=== PATIENT | male | born 1965 | race Caucasian/White ===

== ENCOUNTER 2018-04-25 10:24 | Emergency (ER) | payer MEDICAID ==
[~2018-04-25] VITALS: Ht 167.6 cm; Wt 79.8 kg
[2018-04-25 10:25] VITALS: BP 112/69
--- NOTE | 2018-04-25 10:25 | NUR ---
PT AMBULATES TO BED 10
--- NOTE | 2018-04-25 10:29 | NUR ---
Patient being evaluated by physician at bedside.
[2018-04-25] MEDS ORDERED: MORPHINE SULFATE 2 MG/ML SYR IM ONE (10:30)
[2018-04-25] MEDS ORDERED: NACL 0.9% 1,000 ML IV ONE (10:30)
--- NOTE | 2018-04-25 10:30 | NUR ---
PT BIB SELF FOR LACERATION TO RIGHT SECOND TO 4TH DIGITS CAUSED BY A CHAINSAW AT WORK. PATIENT STATES HE IS IN SEVERE PAIN 10/10. PATIENT APPEARS DIAPHORETIC AND STATES HE FEELS HE IS GOING TO PASS OUT. PATIENT PLACED ON MONITOR. DENIES HX DENIES MEDS. LAST TETANUS SHOT 5YRS AGO. FINGERS ARE ACTIVELY BLEEDING. VSS; PATIENT POSITIONED FOR COMFORT; HOB ELEVATED; BEDRAILS UP X2; BED DOWN. ER MD MADE AWARE OF PT STATUS.
--- NOTE | 2018-04-25 10:32 | NUR ---
XRAY AT BEDSIDE
--- NOTE | 2018-04-25 10:37 | NUR ---
PATIENT MEDICATED FOR RT. FINGER X3 FINGERS PAIN. PAIN LEVEL 10/10. MONITORED
[2018-04-25] MEDS ORDERED: MORPHINE SULFATE 2 MG/ML SYR ONE ×2 (10:38→12:56)
[2018-04-25] MEDS ORDERED: MORPHINE SULFATE 2 MG/ML SYR IVP ONE (10:50)
[2018-04-25] MEDS ORDERED: MIDAZOLAM 2 MG/2 ML VIAL IVP ONE (10:50)
[2018-04-25] MEDS ORDERED: KETAMINE 500 MG/5 ML VIAL IVP ONE (11:55)
--- NOTE | 2018-04-25 12:19 | NUR ---
CONCIOUS SEDATION STARTED, DR. HAMPTON, GIOVANY EMT, DIGNA RN, AND MELISSA RN AT BEDSIDE.
--- NOTE | 2018-04-25 12:20 | NUR ---
DR. HAMPTON STARTED SUTURING.
--- NOTE | 2018-04-25 12:55 | NUR ---
CONCIOUS SEDATION AND SUTURING OVER. PT TOLERATED PROCEDURE WELL, VSS.
[2018-04-25] MEDS ORDERED: ceFAZolin 1,000 MG in DEXTROSE 5% 100 ML IV ONE (13:00)
[2018-04-25] MEDS ORDERED: KETOROLAC 30 MG/ML VIAL IVP ONE (13:00)
--- NOTE | 2018-04-25 13:10 | NUR ---
Patient appears to be resting comfortably in bed. Vital Signs within normal limits. Respirations even and unlabored.
[2018-04-25] MEDS ORDERED: ceFAZolin 1,000 MG VIAL ONE (13:34)
--- NOTE | 2018-04-25 14:30 | NUR ---
Patient appears to be resting comfortably in bed. Vital Signs within normal limits. Respirations even and unlabored.
--- NOTE | 2018-04-25 15:30 | NUR ---
Patient appears to be resting comfortably in bed. Vital Signs within normal limits. Respirations even and unlabored.
--- NOTE | 2018-04-25 16:20 | NUR ---
Patient discharged with v/s stable. Written and verbal after care instructions given and explained. Patient alert, oriented and verbalized understanding of instructions. Ambulatory with steady gait. All questions addressed prior to discharge. ID band removed. Patient advised to follow up with PMD. Rx of BACTRIM, MOTRIN, TRAMADOL given. Patient educated on indication of medication including possible reaction and side effects. Opportunity to ask questions provided and answered.
[2018-04-25 16:30] VITALS: BP 127/83
== END 2018-04-25 16:20 | disposition home or self-care (01) ==
LOC: MED 10:24
DX: S62.626B Displaced fracture of middle phalanx of right little finger, initial encounter for open fracture (principal); S61.210A Laceration without foreign body of right index finger without damage to nail, initial encounter; S61.212A Laceration without foreign body of right middle finger without damage to nail, initial encounter; S61.214A Laceration without foreign body of right ring finger without damage to nail, initial encounter; W26.8XXA Contact with other sharp object(s), not elsewhere classified, initial encounter; Y93.89 Activity, other specified; Y92.89 Other specified places as the place of occurrence of the external cause; Y99.8 Other external cause status
CPT/HCPCS: 12002; 29125; 73130; 90471; 90715; 96365; 96372; 96375; 99152; 99285; J0690; J1885; J2250; J2270; Q0092; J7030

== ENCOUNTER 2018-04-29 11:08 | Emergency (ER) | payer MEDICAID ==
[~2018-04-29] VITALS: Ht 170.2 cm; Wt 77.6 kg
[2018-04-29 12:02] VITALS: BP 120/84
[2018-04-29] MEDS ORDERED: fentaNYL 0.05 MG/ML VIAL IM ONE (12:55)
[2018-04-29] MEDS ORDERED: BACITRACIN OINT 500 UNITS/GM PKT TP ONE (13:08)
[2018-04-29 13:44] VITALS: BP 120/84
== END 2018-04-29 13:39 | disposition home or self-care (01) ==
LOC: MED 11:08
DX: S61.212D Laceration without foreign body of right middle finger without damage to nail, subsequent encounter (principal); S61.210D Laceration without foreign body of right index finger without damage to nail, subsequent encounter; S61.214D Laceration without foreign body of right ring finger without damage to nail, subsequent encounter; F17.200 Nicotine dependence, unspecified, uncomplicated; X58.XXXD Exposure to other specified factors, subsequent encounter
CPT/HCPCS: 96372; 99283; J3010

== ENCOUNTER 2018-05-06 08:30 | Emergency (ER) | payer MEDICAID ==
[~2018-05-06] VITALS: Ht 165.1 cm; Wt 77.6 kg
[2018-05-06 08:36] VITALS: BP 134/81
--- NOTE | 2018-05-06 08:42 | NUR ---
53Y/M ACCOMPANIED BY SPOUSE, PT IS HERE FOR 2ND WOUND CHECK, S/P LACERATION TO 2ND-4TH DIGITS TIP WITH CHAIN SAW 04/25/2018, SUTURES REMAIN INTACT, NO DRAINAGE NOTED, TETANUS IMMUNIZATION UP TO DATE. + CMS, + ROM, < 3 CAP REFILL. PT IS AAOX4, VSS AT THIS TIME, BED DOWN, BEDRAIL UP X 1, ER MD AWARE AND NOTIFIED OF PT STATUS. HX---DENIES RX---NONE
--- NOTE | 2018-05-06 09:00 | NUR ---
Patient being evaluated by physician at bedside.
--- NOTE | 2018-05-06 09:06 | NUR ---
EMT [facility] PT FINGERS AT THIS TIME
[2018-05-06 09:11] VITALS: BP 132/78
--- NOTE | 2018-05-06 09:11 | NUR ---
Patient discharged with v/s stable. Written and verbal after care instructions given and explained. Patient verbalized understanding. Ambulatory with steady gait. All questions addressed prior to discharge. Advised to follow up with PMD.
== END 2018-05-06 09:11 | disposition home or self-care (01) ==
LOC: MED 08:30
DX: S61.214D Laceration without foreign body of right ring finger without damage to nail, subsequent encounter (principal); S61.212D Laceration without foreign body of right middle finger without damage to nail, subsequent encounter; S61.210D Laceration without foreign body of right index finger without damage to nail, subsequent encounter; X58.XXXD Exposure to other specified factors, subsequent encounter
CPT/HCPCS: 99283

== ENCOUNTER 2018-05-13 08:24 | Emergency (ER) | payer MEDICAID ==
[~2018-05-13] VITALS: Ht 165.1 cm; Wt 76.8 kg
[2018-05-13 08:35] VITALS: BP 118/73
[2018-05-13 09:16] VITALS: BP 118/73
== END 2018-05-13 09:17 | disposition home or self-care (01) ==
LOC: MED 08:24
DX: S61.212D Laceration without foreign body of right middle finger without damage to nail, subsequent encounter (principal); S61.214D Laceration without foreign body of right ring finger without damage to nail, subsequent encounter; S61.210D Laceration without foreign body of right index finger without damage to nail, subsequent encounter; X58.XXXD Exposure to other specified factors, subsequent encounter
CPT/HCPCS: 99282